=== PATIENT | female | born 1965 | race Caucasian/White ===

== ENCOUNTER 2018-03-10 18:45 | Emergency (ER) | payer OTHER ==
[~2018-03-10] VITALS: Ht 162.6 cm; Wt 87.9 kg
[~2018-03-10 18:45] MED LIST: ATV1 PO; B-COCAP2 PO; CETI10TA84 PO; CLC100 PO; CRS10 PO; LRT5 PO; MDR PO; SYN100 PO
[2018-03-10 18:47] VITALS: TEMP 36.7; Ht 162.6 cm; Wt 87.9 kg
[2018-03-10] MEDS ORDERED: IBUPROFEN 200 MG TAB PO STA (19:01)
[2018-03-10] MEDS ORDERED: OXYCODONE HCL IR 5 MG TAB (IMMEDIATE RELEASE) PO STA (19:01)
[2018-03-10] MEDS ORDERED: METO25TA3 PO (19:06)
[2018-03-10] MEDS ORDERED: SERT50TA PO (19:06)
[2018-03-10] MEDS ORDERED: B-COTAB18 PO (19:06)
[2018-03-10] MEDS ORDERED: MELA3TAB12 PO (19:06)
[2018-03-10] MEDS ORDERED: ATOR10TA82 PO (19:06)
[2018-03-10] MEDS ORDERED: PRLSR20 PO (19:06)
[2018-03-10] MEDS ORDERED: ALLERGY PILL PO (19:06)
[2018-03-10] MEDS ORDERED: CHOL100027 PO (19:06)
[2018-03-10] MEDS ORDERED: LEVO100T PO (19:06)
--- NOTE | 2018-03-10 19:24 | EMERGENCY ROOM VISIT NOTE ---
History First contact with patient: 18:51 Chief Complaint: HAND PAIN/INJURY Stated Complaint: LEFT HAND PAIN History of Present Illness The patient is a 52 year old female who presents to the Emergency Room via private vehicle with complaints of "left hand pain". The patient states that she has been experiencing edema on the dorsal aspect of her ventral wrist. She states that it began in the recent past. She notes over the past few days she has been experiencing increased pain as well as erythema. She rates the pain as a 5/10. No fevers or chills. She is concerned that it is developing infection. She is right-hand dominant. She notes that she tried calling to schedule follow-up with a surgeon but was unsuccessful so far. Review of Systems A complete 6-point Review of Systems was discussed with the patient, with pertinent positives and negatives listed in the History of Present Illness. All remaining Review of Systems questions can be considered negative unless otherwise specified. Past Medical/Surgical History No pertinent. Family History No pertinent. Social History Smoking Status: Current Every Day Smoker Patient lives locally. Current/Historical Medications Scheduled Atorvastatin (Lipitor), 1 TAB PO DAILY B-Complex Vitamins (Vitamin B Complex), 1 TAB PO DAILY Cholecalciferol (Vitamin D 1000 Unit), 1,000 INTER.UNIT PO DAILY Clindamycin HCl (Clindamycin HCl), 1 CAP PO TID Levothyroxine Sodium (Synthroid), 100 MCG PO DAILY Melatonin-Pyridoxine (Melatonin), 1 TAB PO HS Metoprolol Succ (Toprol Xl) (Toprol-Xl), 1 TAB PO DAILY Omeprazole (Prilosec), 20 MG PO DAILY Sertraline (Zoloft), 1 TAB PO DAILY [Allergy Pill], 1 TAB PO DAILY Scheduled PRN Oxycodone Ir (Roxicodone Ir), 1 TAB PO Q4H PRN for Pain Physical Exam Vital Signs Date Time Temp Pulse Resp B/P (MAP) Pulse Ox O2 Delivery O2 Flow Rate FiO2 03/10/18 20:04 67 18 127/78 97 Room Air 03/10/18 18:47 36.7 80 20 124/77 97 Room Air Physical Exam VITAL SIGNS - Vital signs and nursing notes were reviewed. Stable. Afebrile. GENERAL -52-year-old female appearing her stated age who is in no acute distress. Communicates well with provider and answers questions appropriately. SKIN -patient is a small punctate 1 cm in diameter erythematous region the proximal most midportion of the palmar surface of the left hand. She also has an edematous region consistent with a cystlike structure underneath the skin in the volar aspect of the wrist. EXTREMITIES - No clubbing or peripheral cyanosis. No pretibial edema present. Skin changes as above. Decreased range of motion of the wrist secondary to pain. No bony deformity. No pus. She is neurovascularly intact distally. Flexion of the wrist elicits tenderness. Patient can extend without difficulty. +5/5 strength noted in UE/LE bilaterally. Medical Decision & Procedures ER Provider Diagnostic Interpretation: L WRIST MIN 3 VIEWS ROUTINE CLINICAL HISTORY: 52 years-old Female presenting with L ventral proximal hand/wrist pain. Ganglion cyst also . TECHNIQUE: Frontal, bilateral oblique, and lateral views of the left wrist were obtained. COMPARISON: None. FINDINGS: No acute fracture or malalignment. No advanced degenerative change. No radiographic soft tissue abnormality. IMPRESSION: No acute osseous injury. Electronically signed by: Khanh Stauffer M.D. 03/10/2018 7:20 PM Dictated Date/Time: 03/10/2018 7:19 PM Medications Administered Medications (Trade) Dose Ordered Sig/Nicky Route Start Time Stop Time Status Last Admin Dose Admin Oxycodone HCl (Roxicodone Immediate Rel Tab) 5 mg NOW STAT PO 03/10/18 19:01 03/10/18 19:03 DC 03/10/18 19:21 5 MG Ibuprofen (Advil Tab) 400 mg NOW STAT PO 03/10/18 19:01 03/10/18 19:03 DC 03/10/18 19:22 400 MG Clindamycin HCl (Cleocin Cap) 300 mg NOW STAT PO 03/10/18 19:46 03/10/18 19:48 DC 03/10/18 20:01 300 MG Clindamycin HCl (Cleocin Cap) 300 mg NOW STAT PO 03/10/18 19:46 03/10/18 19:48 DC 03/10/18 20:02 300 MG Oxycodone HCl (Roxicodone Immediate Rel 5MG Home Pack) 1 homepack UD STAT PO 03/10/18 19:46 03/10/18 19:48 DC 03/10/18 20:03 1 HOMEPACK Medical Decision Patient was seen and evaluated as above in room D6. Review was performed of nursing notes and vital signs. After obtaining a thorough history and physical examination the above work up was performed. She presents to us today with left wrist pain. She is nontoxic on examination. Suspect a ganglion cyst with potential overlying region of cellulitis. This could also be inflammation upon the carpal tunnel region. I will cover with antibiotics. She will be given clindamycin secondary to her allergies. Benefit versus risk of initiating these were discussed to include but not limited to C. difficile. Patient verbalized understanding. She was given an Bernard wrap which provided some comfort. X-ray reveals no fracture. At this time she appears stable for outpatient management and is to call orthopedics on Monday or return with worsening. I will give her a short course of pain medication secondary to her level of pain despite using [id number] pain medication. No red flags in the [place] drug monitoring system. The patient was educated upon management, educated upon todays findings/results, educated upon symptoms in which to return, had questions answered prior to discharge, and was discharged home in good condition. In the evaluation and treatment of this patient, the following differential diagnoses were considered: Wrist Sprain, Wrist Fracture, Wrist Dislocation, Scapholunate Dissociation, Carpal Fracture, Metacarpal Fracture, Radial Styloid Process Fracture, Ulnar Styloid Process Fracture, or Carpal Tunnel Syndrome. Impression Primary Impression: Wrist pain, left Departure Information Dispostion Home / Self-Care Condition GOOD Prescriptions Oxycodone Ir (Roxicodone Ir) 5 Mg Tab 1 TAB PO Q4H Y for Pain, #9 TAB For Initial Treatment Prov: Kory Whitlock PA-C 03/10/18 Clindamycin HCl (Clindamycin HCl) 300 Mg Cap 1 CAP PO TID for 7 Days, #21 CAP Prov: Kory Whitlock PA-C 03/10/18 Referrals Cameron Myers D.O. (PCP) Jean Marie Ozuna MD Patient Instructions My [facility] Additional Instructions You have been treated in the Emergency Department for Wrist/hand pain. You have received pain medicine in the emergency department which impairs your ability to operate a vehicle. It is illegal for you to drive after receiving these medicines. Clindamycin 1 tablet every 8 hours for 8 days. Your given the first dose here with the remainder to be taken after 8 hours with the remainder being pharmacy. This is to help treat any infection in the hand. As we discussed please watch for signs of C. difficile as we discussed. Please follow-up with Dr. Ozuna the hand specialist by calling his office first thing Monday and indicating to them that you were seen in the emergency department, he was lease administration supervisor and I would like you to follow-up as soon as possible. You have been prescribed OXY IR to be used for pain control. This is a narcotic medication. You cannot drive or consume alcohol while on this medicine. This medicine should only be used for pain that cannot be controlled with over-the- counter pain medicines. For pain control, you can use the following [id number] medicines (if >12 yo): - Regular strength (325mg/tab) Tylenol (acetaminophen) 2 tabs every 4-6 hours as needed. Do not exceed 12 tablets in a 24 hour period. Avoid taking more than 3 grams (3000 mg) of Tylenol per day. This includes any other sources of acetaminophen you may take on a regular basis. - Regular strength (200 mg/tab) Advil (ibuprofen) 1-2 tabs every 4-6 hours as needed. Do not exceed a dose of 3200 mg per day. If this is a recent injury (<24 hrs), ice can be applied to the area of pain for the first 3 days to help decrease pain and inflammation. You have been provided the number for an Orthopaedic Surgeon. You should call this number as soon as possible to establish a follow-up visit from today's Emergency Department visit. Keep the brace/splint in place until evaluated by Orthopedics. Return to the Emergency Department if your current symptoms worsen despite treatment course outlined above, or if you develop any of the following symptoms : intractable pain despite aforementioned treatment course or new onset of numbness or tingling of the fingers.
--- NOTE | 2018-03-10 19:44 | EMERGENCY ROOM VISIT NOTE ---
ED Visit Note First contact with patient: 18:51 I did evaluate and examine this patient myself. I did guide management for the patient. I agree with the PA's assessment as discussed. Please see the PAs dictation for further details. I did independently review the x-rays. She does have a cystic lesion to her wrist on the volar aspect. She has full range of motion of the wrist without pain but she does have pain to palpation over the cystic region as well as toward the midline which is slightly indurated without fluctuance. I do not suspect a septic arthritis but she will be placed on antibiotics with close follow-up with orthopedics.
[2018-03-10] MEDS ORDERED: OXYCODONE IR HOME PACK PO STA (19:46)
[2018-03-10] MEDS ORDERED: CLINDAMYCIN HCL 150 MG CAP PO STA ×2 (19:46)
[2018-03-10] MEDS ORDERED: CLC/300 PO (19:48)
[2018-03-10] MEDS ORDERED: OXYC-90 PO (19:48)
[2018-03-10] MEDS ORDERED: EMPTY 8 DRAM VIAL ONE (19:57)
[2018-03-10 20:04] VITALS: BP 127/78; PULSE 67; O2SAT 97
== END 2018-03-10 20:09 | disposition home or self-care (01) ==
LOC: C.EDB 18:46 → C.EDD 20:09
DX: M25.532 Pain in left wrist (principal); F17.210 Nicotine dependence, cigarettes, uncomplicated; Z79.899 Other long term (current) drug therapy